=== PATIENT | female | born 1965 | race Caucasian/White ===

== ENCOUNTER → 2021-10-28 | Outpatient (CLI) | payer OTHER | END | disposition home or self-care (01) | LOC: LAB 12:32 → LAB SHORT 12:32 | DX: R07.89 Other chest pain (principal) | CPT/HCPCS: 85379 ==

== ENCOUNTER → 2022-08-26 | Outpatient (CLI) | payer OTHER | LOC: LAB 11:40 → LAB SHORT 11:40 | DX: N39.0 Urinary tract infection, site not specified (principal) | CPT/HCPCS: 87077; 87086; 87186 ==

== ENCOUNTER → 2023-01-27 | Outpatient (CLI) | payer OTHER | LOC: PLD 11:14 → LAB SHORT 11:14 | DX: D48.5 Neoplasm of uncertain behavior of skin (principal) | CPT/HCPCS: 88305 ==